=== PATIENT | male | born 1985 | race Caucasian/White ===

== ENCOUNTER → 2017-10-13 10:22 | Day surgery (SDC) | payer MEDICAID ==
[~2017-10-13] VITALS: Ht 195.6 cm; Wt 102.5 kg
[~2017-10-13 10:22] MED LIST: CEFADROXIL1 G PO; NORCO 7.5/325 T1 TA1 PO; PERCOCET 7.5/321 TAB PO; TYLENOL W/CODEI1 TAB PO
[2017-10-17 08:50] VITALS: Ht 195.6 cm; Wt 102.5 kg
== END | disposition home or self-care (01) ==
LOC: D.OPS 10:22 → D.PAN 12:30 → D.OPS 12:45
DX: S62.337A Displaced fracture of neck of fifth metacarpal bone, left hand, initial encounter for closed fracture (principal); Z01.812 Encounter for preprocedural laboratory examination; W22.8XXA Striking against or struck by other objects, initial encounter; Z53.9 Procedure and treatment not carried out, unspecified reason

== ENCOUNTER 2017-10-17 07:46 | Day surgery (SDC) | payer BC ==
[~2017-10-17] VITALS: Ht 195.6 cm; Wt 107.0 kg
--- NOTE | ~2017-10-17 | OP ---
PATIENT NAME: MAURICE JHVAERI GENE MEDICAL RECORD: [id number] :87 LOCATION:[facility] ADMISSION DATE: SURGEON: JOSE CANTU DO DATE OF OPERATION: 10/17/2017 PROCEDURE PERFORMED: Left fifth metacarpal neck open reduction internal fixation. PREOPERATIVE DIAGNOSIS: Left displaced closed fifth metacarpal neck fracture. POSTOPERATIVE DIAGNOSIS: Left displaced closed fifth metacarpal neck fracture. INDICATIONS: Mr. Ralph is a 31-year-old male, who struck something in his left hand a few weeks ago. He came to our clinic, had a displaced 5th metacarpal neck fracture. It was very distal and did not think to be amenable to closed reduction and pinning due to it was almost into the head of the fifth metacarpal, which was in an adequate position. He was aware of the risks and benefits of the procedure. We discussed that with him and trying to treat as nonop in the splints, he wanted to have it treated due to displacement and deformity. He was aware of risks including infection, bleeding, need for further surgery if he uses it too soon also and the fracture may fall apart. Being aware of that, he was consented for the procedure. SURGEON: Jose Cantu DO DESCRIPTION OF THE PROCEDURE: The patient was taken to the operative suite, laid in supine position, given a general anesthetic. The left lower extremity was prepped and draped in sterile fashion. A time-out was performed. Everyone was agreeance with the correct side, site, patient, and procedure. The incision was then began on the dorsum of the hand and over the fifth metacarpal, extended into over the neck and the head. Careful dissection was made down to the fracture itself. Fracture was exposed and reduced. The plate was put on and 2 locking screws were placed distally, first into the head of the metacarpal and then 2 screws were put into the shaft. A K-wire was holding the plate in place while this happened. This had a nice reduction and good placement of the screws via x-ray. The tourniquet was let down at 34 minutes that had been put up prior to starting the procedure at 250 mmHg. All bleeding was coagulated with a pickup and Bovie. The skin was then closed with inverted interrupted stitch of 3-0 Vicryl and then 5-0 Monocryl around the skin. Steri-Strips were placed over the skin. Then Adaptic, 4 x 4s, and Webril were placed over that, and the patient was placed in an ulnar gutter splint, awakened, and taken to recovery in stable condition. Blood loss was minimal. TRANSINT:[id number] Voice Confirmation ID: [id number] DOCUMENT ID: [id number] JOSE CANTU DO at 1337 CC: [id number] DICTATION DATE: 10/17/17 1111 AMMONIUM SULFATE OPERATOR: 10/17/17 1257 [address] [facility] [address] [place] [address]
[~2017-10-17 07:46] MED LIST changes: -CEFADROXIL1 G PO; -PERCOCET 7.5/321 TAB PO
[2017-10-17 08:50] VITALS: BP 128/69; Ht 195.6 cm; Wt 107.0 kg
[2017-10-17] MEDS ORDERED: PERCOCET 7.5/321 TAB PO (09:42)
[2017-10-17] MEDS ORDERED: CEFADROXIL1 G PO (09:43)
== END 2017-10-17 12:45 | disposition home or self-care (01) ==
LOC: D.OPS 07:46
DX: S62.337A Displaced fracture of neck of fifth metacarpal bone, left hand, initial encounter for closed fracture (principal); W22.8XXA Striking against or struck by other objects, initial encounter; Z01.812 Encounter for preprocedural laboratory examination

== ENCOUNTER 2018-01-02 05:56 | Day surgery (SDC) | payer BC ==
[~2018-01-02] VITALS: Ht 195.6 cm; Wt 104.3 kg
--- NOTE | ~2018-01-02 | OP ---
PATIENT NAME: MAURICE TATUM GENE MEDICAL RECORD: [id number] :87 LOCATION:[facility] ADMISSION DATE: SURGEON: JOSE CANTU DO DATE OF OPERATION: 01/02/2018 PROCEDURE PERFORMED: Removal of hardware, left fifth metacarpal. PREOPERATIVE DIAGNOSIS: Painful hardware, left fifth metacarpal. POSTOPERATIVE DIAGNOSIS: Painful hardware, left fifth metacarpal. INDICATIONS: Mr. Maurice Tatum is a 32-year-old male, who had an ORIF of the left fifth metacarpal on 10/17/2017. Since then, he has had pain over the incision site and down to the bone. He did lose somewhat of the fixation and had what appeared to be a malunion, although not severe enough to do an osteotomy. He did not have greater than 45 degrees of angulation of the fifth metacarpal head. He fractured the fifth metacarpal neck. So, I did count that into account and having the pain where it was, I told him we could take the hardware out and see if that was where the problem was. He was okay with that and aware of the risks and benefits of the procedure including bleeding, infection, damage to nerve and vessels, need for further surgery, and he was okay with that and signed the consent. SURGEON: Jose Cantu DO DESCRIPTION OF PROCEDURE: The patient was taken to the operative suite, laid in supine position. The left upper extremity was prepped and draped in sterile fashion. Time-out was performed. Everyone was in agreement with the correct side, site, and patient. The patient was given 2 grams of Ancef preoperatively. A 4-inch Reese wrap was used to exsanguinate the left upper extremity and tourniquet was inflated to 250 mmHg and was up for 12 minutes total during the procedure. Incision then was made over the prior incision. Careful dissection was made down to the plate. Four screws were removed and the plate was removed. A 5 mL of 0.5% Marcaine with epinephrine were then injected around the site. Tourniquet was let down at 12 minutes. The incision was then closed with a 3-0 Vicryl in inverted interrupted fashion, 4-0 Monocryl running on the skin. Steri-Strips were then placed over it. Adaptic, 4 x 4, Webril, and Reese wrap were then placed on the hand. The patient was awakened and taken to recovery in stable condition. Blood loss was minimal. COMPLICATIONS: None. TRANSINT:[id number] Voice Confirmation ID: [id number] DOCUMENT ID: [id number] JOSE CANTU DO at 1224 CC: [id number] DICTATION DATE: 01/02/18 112 PIN ATTACHER: 01/02/18 1139 [address] [place] [id number] [place] [id number]
[~2018-01-02 05:56] MED LIST changes: +CEFADROXIL1 G PO; +PERCOCET 7.5/321 TAB PO
[2018-01-02 06:24] VITALS: BP 131/90; BMI 27.3
[2018-01-02 07:54] VITALS: BP 131/90; Ht 195.6 cm; Wt 104.3 kg
[2018-01-02] MEDS ORDERED: DURICEF500 MG PO (11:21)
[2018-01-02] MEDS ORDERED: PERCOCET 7.5/321 TAB PO (11:21)
== END 2018-01-02 13:02 | disposition home or self-care (01) ==
LOC: D.OPS 05:56 → D.PAN 09:00 → D.OPS 09:45 → D.PAN 09:45 → D.OPS 13:02
DX: T84.84XA Pain due to internal orthopedic prosthetic devices, implants and grafts, initial encounter (principal); Y83.8 Other surgical procedures as the cause of abnormal reaction of the patient, or of later complication, without mention of misadventure at the time of the procedure; Z72.0 Tobacco use